=== PATIENT | female | born 1975 | race Caucasian/White ===

== ENCOUNTER 2018-03-04 08:11 | Emergency (ER) | payer OTHER ==
[2018-03-04] MEDS: ACETAMINOPHEN 325 MG TAB PO (08:38)
[2018-03-04] MEDS: IBUPROFEN 200 MG TAB PO (08:38)
== END 2018-03-04 09:31 | disposition home or self-care (01) ==
LOC: FTE 08:11
DX: S43.401A Unspecified sprain of right shoulder joint, initial encounter (principal); X50.0XXA Overexertion from strenuous movement or load, initial encounter; Y92.9 Unspecified place or not applicable
CPT/HCPCS: 73030; 73030-RT; 99283-25